=== PATIENT | female | born 1970 | race Caucasian/White ===

== ENCOUNTER 2021-12-12 20:03 | Emergency (ER) | payer MEDICAID, OTHER ==
[~2021-12-12] VITALS: Ht 162.6 cm; Wt 80.7 kg
[~2021-12-12 20:03] MED LIST: ACET-9528 PO; IBUP-44 PO
[2021-12-12 20:06] VITALS: BP 140/82
--- NOTE | 2021-12-12 20:06 | NUR ---
C/O DIFFICULTY BREATHING, DIZZINESS, HOLDER XTODAY. O2 SAT 99% AT THIS TIME. 0/10 PAIN AT THIS TIME. COVID TESTED+ IN NOV 2021 & NEGATIVE 2 WEEK AGO. PMH: DENIES
--- NOTE | 2021-12-12 20:12 | NUR ---
TO LOBBY FOLLOWING TRIAGE
[2021-12-12] MEDS ORDERED: KETOROLAC 60 MG/2 ML VIAL IM ONE (20:30)
[2021-12-12] MEDS ORDERED: PENICILLIN G BENZATHINE L-A 1.2 MU/2 ML SYR IM ONE (20:30)
[2021-12-12] MEDS ORDERED: IBUP-2213 PO (20:46)
[2021-12-12] MEDS ORDERED: PRED20TA5 PO (20:46)
[2021-12-12] MEDS ORDERED: ACET-8386 PO (20:46)
--- NOTE | 2021-12-12 21:02 | NUR ---
Patient discharged with v/s stable. Written and verbal after care instructions given and explained. Patient alert, oriented and verbalized understanding of instructions. Ambulatory with steady gait. All questions addressed prior to discharge. ID band removed. Patient advised to follow up with PMD. Rx of IBUPROFEN & PREDNISONE given. Patient educated on indication of medication including possible reaction and side effects. Opportunity to ask questions provided and answered.
== END 2021-12-12 21:02 | disposition home or self-care (01) ==
LOC: MED 20:03
DX: J02.0 Streptococcal pharyngitis (principal)
CPT/HCPCS: 96372; 99284; J0561; J1885